=== PATIENT | male | born 1985 | race Caucasian/White ===

== ENCOUNTER 2021-05-11 23:27 | Inpatient (IN) | payer OTHER ==
[~2021-05-11] VITALS: Ht 167.6 cm; Wt 85.5 kg
[2021-05-11 23:54] LABS: COVID AG,FIA SOURCE NASAL SWAB
[2021-05-12 00:19] LABS: ANION GAP 11 mmol/L (8-16); CALCIUM, TOTAL 9.9 mg/dL (8.8-10.5); CARBON DIOXIDE 29 mmol/L (22-29); CHLORIDE 103 mmol/L (98-107); CREATININE 0.98 mg/dL (0.60-1.30); GLOMERULAR FILTR. RATE CALC > 60 mL/min (>60); GLUCOSE,RANDOM 87 mg/dL (70-110); POTASSIUM 3.5 mmol/L (3.5-5.1); SODIUM SERUM 143 mmol/L (136-145); UREA NITROGEN, BLOOD 13 mg/dL (7-18)
[2021-05-12 00:25] LABS: ALANINE AMINOTRANSFERASE 86 U/L (12-78); ALBUMIN 4.3 g/dL (3.4-5.0); ALKALINE PHOSPHATASE 63 U/L (46-116); ASPARTATE AMINOTRANSFERASE 41 U/L (15-37); BILIRUBIN,TOTAL 0.7 mg/dL (0.1-1.0); TOTAL PROTEIN, SERUM 9.3 g/dL (6.4-8.2)
[2021-05-12] MEDS ORDERED: ONDANSETRON HCL 4 MG/2 ML VIAL IVP PRN (00:45)
[2021-05-12 00:51] LABS: BASOPHILS % (AUTO) 0.3 % (0.0-2.0); HEMATOCRIT 45.8 % (41-53); HEMOGLOBIN 15.4 g/dL (13.5-17.5); LYMPHOCYTES # (AUTO) 3.9 K/uL (1.0-4.8); LYMPHOCYTES % (AUTO) 33.9 % (22.0-44.0); MEAN CORPUSCULAR HEMOGLOBIN 28.2 pg (26.0-34.0); MEAN CORPUSCULAR HGB CONC 33.6 G/dL (31.0-37.0); MEAN CORPUSCULAR VOLUME 84 fL (80-100); MONOCYTES # (AUTO) 1.3 K/uL (0.1-1.0); MONOCYTES % (AUTO) 11.2 % (2.0-9.0); NEUTROPHILS # (AUTO) 6.2 K/uL (1.8-7.7); NEUTROPHILS % (AUTO) 53.6 % (40.0-70.0); PLATELET COUNT (AUTO) 315 K/uL (150-450); RED BLOOD CELL COUNT(AUTO) 5.45 MIL/uL (4.50-5.90)
[2021-05-12 00:59] LABS: INR 1.2 (0.9-1.1); PROTHROMBIN TIME 12.6 SEC (9.4-11.6)
[2021-05-12] MEDS: SODIUM CHLORIDE 0.9% 1,000 ML IV SCH ×2 (01:18→14:03)
[2021-05-12 02:00] VITALS: BP 135/87
[2021-05-12 02:10] VITALS: BP 135/87
[2021-05-12] MEDS ORDERED: KETOROLAC TROMETHAMINE 15 MG/ML VIAL IVP ONE (04:00)
[2021-05-12] MEDS ORDERED: MELATONIN 3 MG TABLET PO ONE (04:00)
[2021-05-12 04:04] VITALS: BP 144/69
[2021-05-12] MEDS ORDERED: HydrALAZINE HCL 20 MG/ML VIAL IVP PRN (07:00)
[2021-05-12] MEDS: HEPARIN SODIUM,PORCINE 5,000 UNITS/ML VIAL SQ SCH ×3 (07:46→16:00)
[2021-05-12 08:14] VITALS: BP 135/76
[2021-05-12] MEDS ORDERED: PEG 3350/NA SULF,BICARB,CL/KCL 4000 ML SOLUTION PO ONE (08:45)
[2021-05-12] MEDS: PANTOPRAZOLE SODIUM 40 MG/VIAL IVP SCH (11:18)
[2021-05-12] MEDS: ACETAMINOPHEN 325 MG TABLET PO PRN (14:03)
[2021-05-12 15:06] VITALS: BP_SYST 126; BP_SYST 72; BP_DIAS 78
[2021-05-12] MEDS: LevETIRAcetam 500 MG in DEXTROSE 5%-WATER 100 ML IV SCH (15:43)
[2021-05-12] MEDS: GABAPENTIN 300 MG CAPSULE PO SCH (15:43)
[2021-05-12] MEDS: MORPHINE SULFATE 2 MG/ML SYRINGE IVP PRN ×2 (16:37→20:51)
[2021-05-12 19:46] VITALS: BP 137/71
[2021-05-13] MEDS: HEPARIN SODIUM,PORCINE 5,000 UNITS/ML VIAL SQ SCH ×3 (00:01→16:24)
[2021-05-13] MEDS: GABAPENTIN 300 MG CAPSULE PO SCH ×3 (00:01→16:24)
[2021-05-13] MEDS: MORPHINE SULFATE 2 MG/ML SYRINGE IVP PRN ×5 (00:01→21:09)
[2021-05-13] MEDS: SODIUM CHLORIDE 0.9% 1,000 ML IV SCH ×2 (03:12→16:23)
[2021-05-13] MEDS: LevETIRAcetam 500 MG in DEXTROSE 5%-WATER 100 ML IV SCH ×2 (04:56→16:24)
[2021-05-13 05:06] VITALS: BP 123/73
[2021-05-13 08:26] VITALS: BP 140/78
[2021-05-13] MEDS: PANTOPRAZOLE SODIUM 40 MG/VIAL IVP SCH (08:26)
[2021-05-13 09:07] LABS: BASOPHILS % (AUTO) 0.6 % (0.0-2.0); EOSINOPHILS % (AUTO) 1.5 % (1.0-6.0); HEMATOCRIT 43.2 % (41-53); HEMOGLOBIN 14.7 g/dL (13.5-17.5); LYMPHOCYTES # (AUTO) 3.2 K/uL (1.0-4.8); LYMPHOCYTES % (AUTO) 40.3 % (22.0-44.0); MEAN CORPUSCULAR HEMOGLOBIN 28.6 pg (26.0-34.0); MEAN CORPUSCULAR HGB CONC 34.1 G/dL (31.0-37.0); MEAN CORPUSCULAR VOLUME 84 fL (80-100); MONOCYTES # (AUTO) 0.7 K/uL (0.1-1.0); MONOCYTES % (AUTO) 8.5 % (2.0-9.0); NEUTROPHILS % (AUTO) 49.1 % (40.0-70.0); PLATELET COUNT (AUTO) 310 K/uL (150-450); RED BLOOD CELL COUNT(AUTO) 5.15 MIL/uL (4.50-5.90); RED CELL DISTRIBUTION WIDTH 13.5 % (11.5-14.5)
[2021-05-13] MEDS ORDERED: MAGNESIUM CITRATE 300 ML ORAL SOLUTION PO ONE (15:45)
[2021-05-13] MEDS: MINERAL OIL 30 ML UDCUP PO SCH ×2 (16:24→21:00)
[2021-05-13 16:42] VITALS: BP 156/87
[2021-05-13] MEDS: ACETAMINOPHEN 325 MG TABLET PO PRN (18:43)
[2021-05-13 19:26] VITALS: BP 139/80
[2021-05-14] MEDS: HEPARIN SODIUM,PORCINE 5,000 UNITS/ML VIAL SQ SCH ×4 (01:03→23:59)
[2021-05-14] MEDS: GABAPENTIN 300 MG CAPSULE PO SCH ×4 (01:04→23:58)
[2021-05-14] MEDS: MORPHINE SULFATE 2 MG/ML SYRINGE IVP PRN ×4 (01:04→22:19)
[2021-05-14] MEDS: LevETIRAcetam 500 MG in DEXTROSE 5%-WATER 100 ML IV SCH ×2 (04:17→17:05)
[2021-05-14 04:26] VITALS: BP 143/92
[2021-05-14] MEDS: SODIUM CHLORIDE 0.9% 1,000 ML IV SCH ×2 (05:15→18:58)
[2021-05-14 07:27] VITALS: BP 142/95
[2021-05-14] MEDS: PANTOPRAZOLE SODIUM 40 MG/VIAL IVP SCH (08:25)
[2021-05-14] MEDS: MINERAL OIL 30 ML UDCUP PO SCH ×3 (08:26→21:00)
[2021-05-14] MEDS ORDERED: PEG 3350/NA SULF,BICARB,CL/KCL 4000 ML SOLUTION PO ONE (09:45)
[2021-05-14] MEDS: ACETAMINOPHEN 325 MG TABLET PO PRN (18:29)
[2021-05-14 19:46] VITALS: BP 128/79
[2021-05-14] MEDS: MELATONIN 5 MG TABLET PO SCH (21:00)
[2021-05-15] MEDS: MORPHINE SULFATE 2 MG/ML SYRINGE IVP PRN ×5 (02:20→20:18)
[2021-05-15 04:16] VITALS: BP 117/77
[2021-05-15] MEDS: LevETIRAcetam 500 MG in DEXTROSE 5%-WATER 100 ML IV SCH ×2 (05:09→16:10)
[2021-05-15] MEDS ORDERED: PEG 3350/NA SULF,BICARB,CL/KCL 4000 ML SOLUTION PO ONE (07:15)
[2021-05-15 07:53] VITALS: BP 156/78
[2021-05-15] MEDS: MINERAL OIL 30 ML UDCUP PO SCH ×3 (09:00→21:00)
[2021-05-15] MEDS: PANTOPRAZOLE SODIUM 40 MG/VIAL IVP SCH (09:19)
[2021-05-15] MEDS: GABAPENTIN 300 MG CAPSULE PO SCH ×2 (09:20→16:12)
[2021-05-15] MEDS: HEPARIN SODIUM,PORCINE 5,000 UNITS/ML VIAL SQ SCH ×2 (09:20→16:09)
[2021-05-15] MEDS: ACETAMINOPHEN 325 MG TABLET PO PRN (09:21)
[2021-05-15] MEDS: SODIUM CHLORIDE 0.9% 1,000 ML IV SCH ×2 (09:21→22:02)
[2021-05-15 15:32] VITALS: BP 138/76
[2021-05-15 20:11] VITALS: BP 155/84
[2021-05-15] MEDS: MELATONIN 5 MG TABLET PO SCH (22:02)
[2021-05-16] MEDS: HEPARIN SODIUM,PORCINE 5,000 UNITS/ML VIAL SQ SCH ×4 (00:20→23:39)
[2021-05-16] MEDS: GABAPENTIN 300 MG CAPSULE PO SCH ×4 (00:20→23:39)
[2021-05-16] MEDS: MORPHINE SULFATE 2 MG/ML SYRINGE IVP PRN ×4 (00:21→22:03)
[2021-05-16] MEDS: LevETIRAcetam 500 MG in DEXTROSE 5%-WATER 100 ML IV SCH ×2 (04:12→17:18)
[2021-05-16 07:54] VITALS: BP 132/76
[2021-05-16] MEDS: MINERAL OIL 30 ML UDCUP PO SCH ×3 (09:00→20:52)
[2021-05-16] MEDS: PANTOPRAZOLE SODIUM 40 MG/VIAL IVP SCH (09:04)
[2021-05-16 09:58] LABS: BASOPHILS % (AUTO) 1.1 % (0.0-2.0); HEMATOCRIT 40.4 % (41-53); HEMOGLOBIN 13.9 g/dL (13.5-17.5); LYMPHOCYTES # (AUTO) 2.4 K/uL (1.0-4.8); LYMPHOCYTES % (AUTO) 44.1 % (22.0-44.0); MEAN CORPUSCULAR HEMOGLOBIN 28.5 pg (26.0-34.0); MEAN CORPUSCULAR HGB CONC 34.4 G/dL (31.0-37.0); MEAN CORPUSCULAR VOLUME 83 fL (80-100); MONOCYTES # (AUTO) 0.4 K/uL (0.1-1.0); MONOCYTES % (AUTO) 7.2 % (2.0-9.0); NEUTROPHILS # (AUTO) 2.5 K/uL (1.8-7.7); NEUTROPHILS % (AUTO) 44.6 % (40.0-70.0); PLATELET COUNT (AUTO) 214 K/uL (150-450); RED BLOOD CELL COUNT(AUTO) 4.88 MIL/uL (4.50-5.90); RED CELL DISTRIBUTION WIDTH 13.8 % (11.5-14.5)
[2021-05-16 10:06] LABS: ANION GAP 8 mmol/L (8-16); CALCIUM, TOTAL 9.6 mg/dL (8.8-10.5); CARBON DIOXIDE 29 mmol/L (22-29); CHLORIDE 105 mmol/L (98-107); CREATININE 0.87 mg/dL (0.60-1.30); GLOMERULAR FILTR. RATE CALC > 60 mL/min (>60); GLUCOSE,RANDOM 91 mg/dL (70-110); POTASSIUM 4.1 mmol/L (3.5-5.1); SODIUM SERUM 142 mmol/L (136-145); UREA NITROGEN, BLOOD 2 mg/dL (7-18)
[2021-05-16 10:12] LABS: ALANINE AMINOTRANSFERASE 85 U/L (12-78); ALBUMIN 3.8 g/dL (3.4-5.0); ALKALINE PHOSPHATASE 52 U/L (46-116); ASPARTATE AMINOTRANSFERASE 45 U/L (15-37); BILIRUBIN,TOTAL 0.5 mg/dL (0.1-1.0)
[2021-05-16] MEDS: SODIUM CHLORIDE 0.9% 1,000 ML IV SCH ×2 (12:46→23:41)
[2021-05-16] MEDS ORDERED: SODIUM CHLORIDE 0.9% 1,000 ML ONE (14:43)
[2021-05-16 19:40] VITALS: BP 132/70
[2021-05-16] MEDS: MELATONIN 5 MG TABLET PO SCH (20:52)
[2021-05-17] MEDS: LevETIRAcetam 500 MG in DEXTROSE 5%-WATER 100 ML IV SCH ×2 (02:28→15:49)
[2021-05-17 05:10] VITALS: BP 136/58
[2021-05-17] MEDS ORDERED: PROPOFOL 1% 20 ML VIAL IVP ONE (05:39)
[2021-05-17 07:38] VITALS: BP 138/92
[2021-05-17] MEDS: GABAPENTIN 300 MG CAPSULE PO SCH ×2 (08:15→16:00)
[2021-05-17] MEDS: HEPARIN SODIUM,PORCINE 5,000 UNITS/ML VIAL SQ SCH ×2 (08:15→15:49)
[2021-05-17] MEDS: PANTOPRAZOLE SODIUM 40 MG/VIAL IVP SCH (08:15)
[2021-05-17] MEDS: MORPHINE SULFATE 2 MG/ML SYRINGE IVP PRN ×4 (08:18→22:34)
[2021-05-17] MEDS: MINERAL OIL 30 ML UDCUP PO SCH ×3 (08:28→20:47)
[2021-05-17] MEDS: SODIUM CHLORIDE 0.9% 1,000 ML IV SCH (13:14)
[2021-05-17 15:34] VITALS: BP 128/86
[2021-05-17 19:50] VITALS: BP 128/55
[2021-05-17] MEDS: MELATONIN 5 MG TABLET PO SCH ×2 (20:46→20:49)
[2021-05-18] MEDS: SODIUM CHLORIDE 0.9% 1,000 ML IV SCH (02:08)
[2021-05-18] MEDS: LevETIRAcetam 500 MG in DEXTROSE 5%-WATER 100 ML IV SCH (04:59)
[2021-05-18 05:22] VITALS: BP 129/78
[2021-05-18 07:36] VITALS: BP 126/78
[2021-05-18] MEDS: PANTOPRAZOLE SODIUM 40 MG/VIAL IVP SCH (08:06)
[2021-05-18] MEDS: GABAPENTIN 300 MG CAPSULE PO SCH ×2 (08:06)
[2021-05-18] MEDS: MINERAL OIL 30 ML UDCUP PO SCH (08:06)
[2021-05-18] MEDS: HEPARIN SODIUM,PORCINE 5,000 UNITS/ML VIAL SQ SCH ×2 (08:07)
[2021-05-18] MEDS ORDERED: GABA-1181 PO (10:53)
[2021-05-18] MEDS ORDERED: LEVE500T20 PO (10:53)
[2021-05-18] MEDS ORDERED: MELA5TAB40 PO (10:54)
[2021-05-18] MEDS ORDERED: [UNRECOGNIZED DRUG - CODE] PO (10:58)
== END 2021-05-18 11:40 | DRG 394 ==
LOC: EMS 23:29 → 6S 05-12 01:10
PROVIDERS: ADMIT Internal Medicine; ATTEND Internal Medicine
PROC: 0DCK8ZZ Extirpation of Matter from Ascending Colon, Via Natural or Artificial Opening Endoscopic (ICD-10-PCS; principal; 2021-05-16 15:30)
DX: T18.8XXA Foreign body in other parts of alimentary tract, initial encounter (principal); F11.23 Opioid dependence with withdrawal; G40.909 Epilepsy, unspecified, not intractable, without status epilepticus; N31.9 Neuromuscular dysfunction of bladder, unspecified; I10 Essential (primary) hypertension; K64.9 Unspecified hemorrhoids; Z20.822 Contact with and (suspected) exposure to COVID-19; E78.00 Pure hypercholesterolemia, unspecified; F31.9 Bipolar disorder, unspecified; F41.9 Anxiety disorder, unspecified; E78.5 Hyperlipidemia, unspecified; G47.00 Insomnia, unspecified; X83.8XXA Intentional self-harm by other specified means, initial encounter; Z79.899 Other long term (current) drug therapy; Z88.8 Allergy status to other drugs, medicaments and biological substances; Y93.89 Activity, other specified; Y92.89 Other specified places as the place of occurrence of the external cause; Y99.8 Other external cause status
CPT/HCPCS: 74018; 74019; 74022; 74176; 80053; 85025; 85610; 85730; 87081; 88300; 97116; 97162; 97165; 97535; 99285; C9113; G0480; J0712; J1644; J1885; J2270; J2704; J7030; J7060; Q9967; 36415-L1; 36415-TC